=== PATIENT | female | born 1995 | race Caucasian/White ===

== ENCOUNTER 2018-11-03 17:55 | Observation (INO) | payer OTHER, SELFPAY ==
[2018-11-03 18:30] LABS: Absolute Lymphocytes (CBC) 2.3 K/uL (0.7-4.9); Absolute Monocytes 0.7 K/uL (0.1-1.3); Absolute Neutrophil 13.1 K/uL (1.8-8.0); Basophils % 0.8 % (0-1.3); Eosinophils % 0.4 % (0-4.4); Hematocrit 40.4 % (36.0-45.0); Lymphocytes % 14.4 % (15.3-44.8); MPV 7.8 fL (7.6-11.3); RBC Red Blood Cell Count 5.09 M/uL (3.86-4.86)
[2018-11-03] MEDS ORDERED: NA CHLORIDE 0.9% 1,000 ML ONE ×2 (18:35→21:27)
[2018-11-03] MEDS ORDERED: KETOROLAC 30 MG/ML INJ ONE (18:35)
[2018-11-03 18:41] LABS: BUN Blood Urea Nitrogen 7 mg/dL (7-18); Bicarbonate 26 mmol/L (21-32); Glucose Level 127 mg/dL (74-106); Potassium 3.5 mmol/L (3.5-5.1); Sodium Level 139 mmol/L (136-145)
[2018-11-03 20:13] LABS: Urine Blood 2+ (NEG); Urine Glucose NEGATIVE (NEG); Urine Protein NEGATIVE (NEG); Urine Specific Gravity 1.015 (1.005-1.030)
--- NOTE | 2018-11-03 20:56 | RAD REPORT ---
EXAM DESCRIPTION: CT - Abdomen Pelvis W Contrast - 11/03/2018 8:33 pm CLINICAL HISTORY: Abdominal pain. COMPARISON: None. TECHNIQUE: Computed axial tomography of the abdomen and pelvis was obtained. 100 cc Isovue-300 is ad ministered intravenously. Oral contrast was given. All CT scans are performed using dose optimization technique as appropriate and may include automated exposure control or mA/KV adjustment according to patient size. FINDINGS: The liver, spleen, pancreas, adrenals and kidneys appear unremarkable. There is no evidence of diverticulitis The appendix is mildly enlarged. Small amount of contrast is present within the appendix. Minimal str anding is present within the adjacent fat. No abscess. No free air. IUD is in place. No adnexal mass IMPRESSION: Mild thickening of the appendix probably represents early appendicitis. This should be c orrelated clinically.
--- NOTE | 2018-11-03 21:09 | ER ---
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 Transition of care: patient was not received from another setting of care. Onset of symptoms was November 03, 2018. Risk Assessment: Do you want to hurt yourself or someone else? Patient reports no desire to harm self or others. Initial Sepsis Screen: Does the patient meet any 2 criteria? No. Patient's initial sepsis screen is negative. Does the patient have a suspected source of infection? Yes: Acute abdominal pain. Care prior to arrival: None. 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 - Social history:: Smoking status: Patient/guardian denies using tobacco. - Ebola Screening: : Patient negative for fever greater than or equal to 101.5 degrees Fahrenheit, and additional compatible Ebola Virus Disease symptoms Patient denies exposure to infectious person Patient denies travel to an Ebola-affected area in the 21 days before illness onset No symptoms or risks identified at this time. Screenin:27 Abuse screen: Denies threats or abuse. Denies injuries from another. Nutritional rv screening: No deficits noted. Tuberculosis screening: No symptoms or risk factors identified. Fall Risk None identified. Assessment: 18:26 General: Appears in no apparent distress. comfortable, Behavior is calm, cooperative. rv Pain: Complains of pain in rlq. Pain: Pain does not radiate. Pain currently is 2 out of 10 on a pain scale. at worst was 7 out of 10 on a pain scale. Quality of pain is described as dull. Neuro: Level of Consciousness is awake, alert, obeys commands, Oriented to person, place, time, situation. Cardiovascular: Patient's skin is warm and dry. Respiratory: Airway is patent. GI: Bowel sounds present X 4 quads. Abd is soft and non tender X 4 quads. Reports lower abdominal pain. : No signs and/or symptoms were reported regarding the genitourinary system. EENT: No signs and/or symptoms were reported regarding the EENT system. Derm: Skin is intact. Musculoskeletal: No signs and/or symptoms reported regarding the musculoskeletal system. 19:06 Reassessment: Patient appears in no apparent distress at this time. No changes from rv previously documented assessment. Patient and/or family updated on plan of care and expected duration. Pain level reassessed. Patient is alert, oriented x 3, equal unlabored respirations, skin warm/dry/pink. awaiting for CT scan to be done. Vital Signs: 18:08 BP 139 / 86; Pulse 109; Resp 16; Temp 98.3; Pulse Ox 100% on R/A; Pain 7/10; sg 19:00 BP 137 / 76; Pulse 101; Resp 16; Temp 98; Pulse Ox 97% ; rv 19:30 BP 129 / 80; Pulse 103; Resp 17; Pulse Ox 97% ; rv 20:30 BP 134 / 84; Pulse 97; Resp 16; Pulse Ox 98% ; rv 21:58 BP 132 / 85; Pulse 104; Resp 17; Temp 99.1; Pulse Ox 98% ; rv 22:30 BP 125 / 82; Pulse 106; Resp 16; Pulse Ox 96% ; rv 23:00 BP 120 / 90; Pulse 97; Resp 17; Temp 98.5; Pulse Ox 97% ; rv ED Course: 17:58 Patient arrived in ED. tw3 17:59 Georgiana Infante FNP-C [facility]. kb 17:59 Mark Anthony Ryan MD is Attending Physician. kb 18:06 Scotty Nunez RN is Primary Nurse. rv 18:06 Arm band placed on. sg 18:08 Triage completed. sg 18:20 Inserted saline lock: 20 gauge in right antecubital area, using aseptic technique. rv Blood collected. 18:27 Patient has correct armband on for positive identification. Placed in gown. Bed in low rv position. Call light in reach. Side rails up X 1. Adult w/ patient. Pulse ox on. NIBP on. 19:05 Basic Metabolic Panel Sent. rv 20:33 CT Abd/Pelvis - W/Contrast In Process Unspecified. EDMS 21:09 Azael Wolf MD is Hospitalizing Provider. kb 23:10 No provider procedures requiring assistance completed. Patient admitted, IV remains in rv place. Administered Medications: 18:25 Drug: NS 0.9% 1000 ml Route: IV; Rate: 1000 ml; Site: right antecubital; rv 21:21 Follow up: IV Status: Completed infusion; IV Intake: 1000ml rv 18:25 Drug: TORadol 30 mg Route: IVP; Site: right antecubital; rv 19:05 Follow up: Response: No adverse reaction; Pain is decreased rv 21:21 Drug: Mefoxin 2 grams Route: IVPB; Infused Over: 30 mins; Site: right antecubital; rv 21:56 Follow up: IV Status: Completed infusion; IV Intake: 100ml rv 21:21 Drug: NS 0.9% 1000 ml Route: IV; Rate: 125 ml/hr; Site: right antecubital; rv 23:05 Follow up: IV Status: Infusion continued upon admission rv 21:56 Drug: Flagyl 500 mg Volume: 100 ml; Route: IVPB; Rate: 200 ml/hr; Infused Over: 30 rv mins; Site: right antecubital; 23:05 Follow up: IV Status: Completed infusion rv 23:05 Follow up: IV Intake: 100ml rv 22:30 Drug: morphine 4 mg Route: IVP; Site: right antecubital; rv 23:12 Follow up: Response: Pain is decreased rv 22:30 Drug: Zofran 4 mg Route: IVP; Site: right antecubital; rv 23:12 Follow up: Response: No adverse reaction rv Intake: 21:21 IV: 1000ml; Total: 1000ml. rv 21:56 IV: 100ml; Total: 1100ml. rv 23:05 IV: 100ml; Total: 1200ml. rv Outcome: 21:09 Decision to Hospitalize by Provider. kb 23:12 Admitted to Tele accompanied by tech, via wheelchair, room 416, with chart, Report rv called to ROSELYN BURLESON 23:12 Condition: good 23:12 Instructed on the need for admit. 23:22 Patient left the ED. rv Signatures: Dispatcher [employer] Georgiana Armijo, THEA LYNCH-Dewayne Vang, RN RN sg Shon, Ana tw3 Scotty Nunez RN RN rv
--- NOTE | 2018-11-03 21:09 | EDPHYS ---
Physician Documentation [facility] Name: Zabrina Mckeon Age: 23 yrs Sex: Female : 1995 Arrival Date: 11/03/2018 Time: 17:58 Bed 27 Private MD: ED Physician Mark Anthony Ryan HPI: 11/03 18:59 This 23 yrs old Female presents to ER via Ambulatory with complaints of kb Abdominal Pain. 18:59 The patient presents with abdominal pain right lower quadrant. Onset: The kb symptoms/episode began/occurred this morning. The symptoms do not radiate. Associated signs and symptoms: Pertinent positives: nausea, Pertinent negatives: anorexia, blood in stools, chest pain, constipation, diarrhea, dysuria, fever, headache, hematuria, palpitations, shortness of breath, vaginal discharge, vomiting, vomiting blood. The symptoms are described as constant. Modifying factors: The symptoms are alleviated by nothing, the symptoms are aggravated by pressure. Severity of pain: At its worst the pain was moderate in the emergency department the pain is unchanged. The patient has not experienced similar symptoms in the past. The patient has not recently seen a physician. Pt reports RLQ pain that started this morning with nausea. Was able to sleep through the nausea, but pain persists. Has not checked her temp to know about fever. Denies vomiting and diarrhea. 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 - Social history:: Smoking status: Patient/guardian denies using tobacco. - Ebola Screening: : Patient negative for fever greater than or equal to 101.5 degrees Fahrenheit, and additional compatible Ebola Virus Disease symptoms Patient denies exposure to infectious person Patient denies travel to an Ebola-affected area in the 21 days before illness onset No symptoms or risks identified at this time. ROS: 18:59 Constitutional: Negative for fever, chills, and weight loss, Cardiovascular: Negative kb for chest pain, palpitations, and edema, Respiratory: Negative for shortness of breath, cough, wheezing, and pleuritic chest pain, Back: Negative for injury and pain, : Negative for injury, bleeding, discharge, and swelling, MS/Extremity: Negative for injury and deformity, Skin: Negative for injury, rash, and discoloration, Neuro: Negative for headache, weakness, numbness, tingling, and seizure. 18:59 Abdomen/GI: Positive for abdominal pain, nausea, Negative for vomiting, diarrhea, constipation, abdominal cramps, abdominal distension, anorexia. Exam: 18:59 Constitutional: This is a well developed, well nourished patient who is awake, alert, kb and in no acute distress. Head/Face: Normocephalic, atraumatic. ENT: Nares patent. No nasal discharge, no septal abnormalities noted. Tympanic membranes are normal and external auditory canals are clear. Oropharynx with no redness, swelling, or masses, exudates, or evidence of obstruction, uvula midline. Mucous membranes moist. Neck: Trachea midline, no thyromegaly or masses palpated, and no cervical lymphadenopathy. Supple, full range of motion without nuchal rigidity, or vertebral point tenderness. No Meningismus. Chest/axilla: Normal chest wall appearance and motion. Nontender with no deformity. No lesions are appreciated. Cardiovascular: Regular rate and rhythm with a normal S1 and S2. No gallops, murmurs, or rubs. Normal PMI, no JVD. No pulse deficits. Respiratory: Lungs have equal breath sounds bilaterally, clear to auscultation and percussion. No rales, rhonchi or wheezes noted. No increased work of breathing, no retractions or nasal flaring. Back: No spinal tenderness. No costovertebral tenderness. Full range of motion. Skin: Warm, dry with normal turgor. Normal color with no rashes, no lesions, and no evidence of cellulitis. MS/ Extremity: Pulses equal, no cyanosis. Neurovascular intact. Full, normal range of motion. Neuro: Awake and alert, GCS 15, oriented to person, place, time, and situation. Cranial nerves II-XII grossly intact. Motor strength 5/5 in all extremities. Sensory grossly intact. Cerebellar exam normal. Normal gait. 18:59 Abdomen/GI: Inspection: abdomen appears normal, Bowel sounds: normal, in all quadrants, Palpation: soft, in all quadrants, moderate abdominal tenderness, in the right lower quadrant, Indicators: McBurney's point is tender. Vital Signs: 18:08 BP 139 / 86; Pulse 109; Resp 16; Temp 98.3; Pulse Ox 100% on R/A; Pain 7/10; sg 19:00 BP 137 / 76; Pulse 101; Resp 16; Temp 98; Pulse Ox 97% ; rv 19:30 BP 129 / 80; Pulse 103; Resp 17; Pulse Ox 97% ; rv 20:30 BP 134 / 84; Pulse 97; Resp 16; Pulse Ox 98% ; rv 21:58 BP 132 / 85; Pulse 104; Resp 17; Temp 99.1; Pulse Ox 98% ; rv 22:30 BP 125 / 82; Pulse 106; Resp 16; Pulse Ox 96% ; rv 23:00 BP 120 / 90; Pulse 97; Resp 17; Temp 98.5; Pulse Ox 97% ; rv MDM: 18:01 Patient medically screened. kb 18:59 Data reviewed: vital signs, nurses notes. Data interpreted: Pulse oximetry: on room air kb is 100 %. Interpretation: normal. 21:08 Counseling: I had a detailed discussion with the patient and/or guardian regarding: the kb historical points, exam findings, and any diagnostic results supporting the discharge/admit diagnosis, lab results, radiology results, the need for further work-up and treatment in the hospital. Physician consultation: Azael Wolf MD was contacted at 21:08, regarding admission, to the medical/surgical unit. patient's condition, and will see patient in inpatient room, wants to do appendectomy at 0800 tomorrow. 11/03 18:07 Order name: Basic Metabolic Panel kb 11/03 18:07 Order name: CBC with Diff; Complete Time: 18:32 kb 11/03 18:07 Order name: CT Abd/Pelvis - W/Contrast; Complete Time: 21:02 kb 11/03 18:08 Order name: Basic Metabolic Panel; Complete Time: 18:43 EDMS 11/03 19:02 Order name: Urine Dipstick--Ancillary (enter results); Complete Time: 20:16 sg 11/03 19:02 Order name: Urine --Ancillary (enter results); Complete Time: 20:16 sg 11/03 18:07 Order name: IV Saline Lock; Complete Time: 18:25 kb 11/03 18:07 Order name: Labs collected and sent; Complete Time: 18:25 kb 11/03 18:07 Order name: Urine Dipstick-Ancillary (obtain specimen); Complete Time: 19:07 kb 11/03 18:07 Order name: Urine Test (obtain specimen); Complete Time: 19:07 kb Administered Medications: 18:25 Drug: NS 0.9% 1000 ml Route: IV; Rate: 1000 ml; Site: right antecubital; rv 21:21 Follow up: IV Status: Completed infusion; IV Intake: 1000ml rv 18:25 Drug: TORadol 30 mg Route: IVP; Site: right antecubital; rv 19:05 Follow up: Response: No adverse reaction; Pain is decreased rv 21:21 Drug: Mefoxin 2 grams Route: IVPB; Infused Over: 30 mins; Site: right antecubital; rv 21:56 Follow up: IV Status: Completed infusion; IV Intake: 100ml rv 21:21 Drug: NS 0.9% 1000 ml Route: IV; Rate: 125 ml/hr; Site: right antecubital; rv 23:05 Follow up: IV Status: Infusion continued upon admission rv 21:56 Drug: Flagyl 500 mg Volume: 100 ml; Route: IVPB; Rate: 200 ml/hr; Infused Over: 30 rv mins; Site: right antecubital; 23:05 Follow up: IV Status: Completed infusion rv 23:05 Follow up: IV Intake: 100ml rv 22:30 Drug: morphine 4 mg Route: IVP; Site: right antecubital; rv 23:12 Follow up: Response: Pain is decreased rv 22:30 Drug: Zofran 4 mg Route: IVP; Site: right antecubital; rv 23:12 Follow up: Response: No adverse reaction rv Disposition: 11/03/18 21:09 Hospitalization ordered by Azael Wolf for Observation. Preliminary diagnosis is Acute appendicitis. - Bed requested for Telemetry/MedSurg (observation). - Status is Observation. rv - Condition is Stable. - Problem is new. - Symptoms are unchanged. UTI on Admission? No Addendum: 11/08/2018 20:27 Co-signature as Attending Physician, Mark Anthony Ryan MD. g s Signatures: Dispatcher [employer] Georgiana Armijo, CRSI-C CRIS-Dewayne Vang RN RN sg Kitty Miranda, BENJY RN cg Mark Anthony Ryan MD MD Scotty Nunez, RN RN rv Corrections: (The following items were deleted from the chart) 11/03 23:00 21:09 Hospitalization Ordered by Azael Wolf MD for Observation. Preliminary diagnosis cg is Acute appendicitis. Bed requested for Telemetry/MedSurg (observation). Status is Observation. Condition is Stable. Problem is new. Symptoms are unchanged. UTI on Admission? No. kb 23:22 23:00 11/03/2018 21:09 Hospitalization Ordered by Azael Wolf MD for Observation. rv Preliminary diagnosis is Acute appendicitis. Bed requested for Telemetry/MedSurg (observation). Status is Observation. Condition is Stable. Problem is new. Symptoms are unchanged. UTI on Admission? No. cg
[2018-11-03] MEDS ORDERED: CEFOXITIN SODIUM 1 GM/VIAL ONE (21:26)
[2018-11-03] MEDS ORDERED: METRONIDAZOLE 500mg IVPB 500 MG/100 ML BAG IV ONE (21:26)
[2018-11-03] MEDS ORDERED: NA CHLORIDE 0.9% 100 ML IV ONE (21:26)
[2018-11-03] MEDS ORDERED: MORPHINE 4 MG/ML SYR ONE (22:17)
[2018-11-03] MEDS ORDERED: ONDANSETRON 4 MG/2 ML VIAL ONE (22:18)
[2018-11-04 00:10] VITALS: BMI 39.7
[2018-11-04] MEDS ORDERED: MORPHINE 4 MG/ML SYR IV PRN (00:11)
[2018-11-04] MEDS ORDERED: ACETAMINOPHEN 500 MG TAB PO PRN (00:11)
[2018-11-04] MEDS ORDERED: ONDANSETRON 4 MG/2 ML VIAL IV PRN ×2 (00:11→08:56)
[2018-11-04] MEDS: NA CHLORIDE 0.9% 1,000 ML IV SCH ×3 (01:38→16:11)
[2018-11-04] MEDS ORDERED: METRONIDAZOLE 500mg IVPB 500 MG/100 ML BAG IV ONE (01:48)
[2018-11-04] MEDS ORDERED: CEFOXITIN SODIUM 1 GM/VIAL ONE (02:09)
[2018-11-04] MEDS ORDERED: CEFOXITIN SODIUM 1 GM/VIAL IVPB SCH (03:00)
[2018-11-04] MEDS ORDERED: NA CHLORIDE 0.9% 50 ML ONE (03:08)
[2018-11-04] MEDS: METRONIDAZOLE 250mg IVPB 250 MG/50 ML BAG IV SCH ×3 (05:00→20:18)
[2018-11-04 06:35] LABS: Absolute Lymphocytes (CBC) 3.2 K/uL (0.7-4.9); Absolute Monocytes 0.5 K/uL (0.1-1.3); Absolute Neutrophil 6.3 K/uL (1.8-8.0); Basophils % 0.6 % (0-1.3); Eosinophils % 1.3 % (0-4.4); Hematocrit 35.5 % (36.0-45.0); Lymphocytes % 31.3 % (15.3-44.8); RBC Red Blood Cell Count 4.41 M/uL (3.86-4.86)
[2018-11-04 06:49] LABS: BUN Blood Urea Nitrogen 6 mg/dL (7-18); Bicarbonate 24 mmol/L (21-32); Glucose Level 80 mg/dL (74-106); Potassium 3.6 mmol/L (3.5-5.1); Sodium Level 142 mmol/L (136-145)
[2018-11-04] MEDS ORDERED: ROCURONIUM 50 MG/5 ML VIAL IV ONE (08:01)
[2018-11-04] MEDS ORDERED: PROPOFOL 200 MG/20 ML VIAL IV ONE (08:01)
[2018-11-04] MEDS ORDERED: FENTANYL CITR 100 MCG/2 ML ONE (08:01)
[2018-11-04] MEDS ORDERED: LIDOCAINE 2% MPF 5 ML VIAL ONE (08:02)
[2018-11-04] MEDS ORDERED: Ringers Lactate 0 ML IV ONE (08:04)
[2018-11-04] MEDS: CEFOXITIN/SWI 1gm 1 GM/10 ML SYR IVP SCH ×3 (08:10→17:09)
[2018-11-04] MEDS ORDERED: DEXAMETHASONE 10 MG/ML VIAL ONE (08:24)
[2018-11-04] MEDS ORDERED: KETOROLAC 30 MG/ML INJ ONE (08:24)
[2018-11-04] MEDS ORDERED: Ringers Lactate 1,000 ML IV ONE (08:24)
[2018-11-04] MEDS ORDERED: ONDANSETRON 4 MG/2 ML VIAL ONE ×2 (08:24)
[2018-11-04] MEDS ORDERED: EPHEDRINE SULF 50 MG/ML VIAL ONE (08:29)
[2018-11-04] MEDS ORDERED: NEOSTIGMINE 1 MG/ML -10 ML VIAL ONE (08:43)
[2018-11-04] MEDS ORDERED: GLYCOPYRROLATE 0.2 MG/ML SYR ONE (08:43)
--- NOTE | 2018-11-04 08:47 | P.OP ---
Preoperative diagnosis: Acute Appendicitis Postoperative diagnosis: same Primary procedure: Lap Appy Anesthesia: Gen Estimated blood loss: min Specimen: Appy Findings: as above Complications: None Transferred to: Recovery Room Condition: Good
[2018-11-04] MEDS ORDERED: HYDROMORPHONE HCL 1 MG/ML INJ IV PRN (08:56)
[2018-11-04] MEDS ORDERED: HYDROMORPHONE HCL 1 MG/ML INJ ONE (09:26)
--- NOTE | 2018-11-04 20:12 | OP ---
Date of Procedure: 11/04/2018 Surgeon: Azael Wolf MD Preoperative Diagnosis: Acute appendicitis. Postoperative Diagnosis: Acute appendicitis. Procedure: Laparoscopic appendectomy. Estimated Blood Loss: Minimal. Specimen: Appendix. Findings: As above. Anesthesia: General. Complications: None. Disposition: The patient tolerated the procedure in stable condition, taken to Recovery in good gene ral condition. Procedure In Detail: The patient was brought to the OR, placed in supine position. General anesthes ia begun. The patient was prepped and draped in usual sterile fashion. Marcaine 0.5% was infiltrate d locally. A 15-blade was used to make a 1 cm supraumbilical midline incision. Subcutaneous tissue divided. Fascia and plane divided with #1 Vicryl. Stay suture was placed. Peritoneal cavity was en tered with sharp and blunt dissection. A 12 mm trocar was placed into the peritoneal cavity under di rect vision. Pneumoperitoneum was established. Then, two 5 mm trocars placed, 1 in the suprapubic r egion, 1 in the left lower quadrant. Laparoscopy revealed normal gallbladder, normal liver, normal s tomach, normal peritoneal surface. There were some adhesions in the right lower quadrant. Colon, sm all bowel, uterus, ovaries were within normal limit except I believe the left ovary may have had some cyst in it; it was a little larger than the right ovary. The tubes were fine. There was no other e vidence of disease. The appendix was identified in the right lower quadrant. The area was injected, indurated and there was early separation consistent with acute appendicitis. The base of the append ix, mesoappendix identified and an Endo-SOHAIL stapling device used to divide the mesoappendix as well a s the base of the appendix and the appendix was retrieved through the umbilicus via an EndoCatch bag. There was some oozing noted from the appendiceal artery mesenteric region and this was controlled e asily with vascular clips. Then, the right lower quadrant irrigated and no evidence of bleeding or b owel injury appreciated. No other evidence of disease identified and then all trocars were removed u nder direct vision. Stay sutures tied to each other, reapproximated the fascial defect. Subcutaneou s wounds irrigated. Bleeding controlled with cautery. 3-0 chromic used to reapproximate subcutaneou s tissue and natasha used to close skin. Sterile dressing was applied. The patient was awakened and taken to Recovery in good general condition. /MODL Voice ID: [id number] Report ID: [id number]
[2018-11-04] MEDS: HYDROCODONE/APAP 7.5/325 MG TAB PO PRN (20:16)
[2018-11-05] MEDS: CEFOXITIN/SWI 1gm 1 GM/10 ML SYR IVP SCH ×2 (00:07→06:08)
[2018-11-05] MEDS: NA CHLORIDE 0.9% 1,000 ML IV SCH ×2 (00:07→04:25)
[2018-11-05] MEDS: METRONIDAZOLE 250mg IVPB 250 MG/50 ML BAG IV SCH ×2 (04:25→13:59)
[2018-11-05 06:10] LABS: Absolute Lymphocytes (CBC) 2.7 K/uL (0.7-4.9); Absolute Monocytes 0.6 K/uL (0.1-1.3); Absolute Neutrophil 7.5 K/uL (1.8-8.0); Basophils % 0.3 % (0-1.3); Eosinophils % 0.1 % (0-4.4); Hematocrit 33.7 % (36.0-45.0); Lymphocytes % 24.7 % (15.3-44.8); MPV 7.9 fL (7.6-11.3); Monocytes % 5.4 % (3.3-12.3)
--- NOTE | 2018-11-05 08:58 | PREOPHP ---
Date of Admission: 11/03/2018 History Of Present Illness: The patient is a 23-year-old female, who comes in with right lower quadrant abdominal pain associated with nausea, no vomiting, and does have anorexia, had one ep isode of diarrhea dizziness. No chest pain. No fever or chills. Review of Systems: Otherwise, unremarkable. Past Medical History: . Past Surgical History: [place] teeth . Allergies: NO ALLERGIES. Family History: Significant for diabetes and high blood pressure. Physical Examination: Vital Signs: Stable. She is currently afebrile. General: She is awake, alert, oriented x3. Head and Neck: Cranial nerves 2 through 12 are grossly within normal limits. No neck masses. No JV D. Throat clear. Neck supple. Chest: Clear. Heart: S1, S2. Abdomen: Soft, nondistended. Positive bowel sounds. Positive right upper quadrant tenderness with rebound. No rigidity or guarding. Extremities: Adequately perfused. Nontender. Neuro: Nonfocal. Diagnostic Data: White count . Assessment: Acute appendicitis. Plan: Admit n.p.o., IV fluid, IV antibiotic, to the OR for laparoscopic appendectomy, possible open. The patient understand the risks, benefits, and alternatives and agrees to procedure. MING/EDUARDO Voice ID: [id number]
[2018-11-05] MEDS: HYDROCODONE/APAP 7.5/325 MG TAB PO PRN ×2 (10:00→15:55)
[2018-11-05 16:35] VITALS: O2SAT 99
[2018-11-05 17:23] VITALS: BP 119/84; TEMP 97.3
--- NOTE | 2018-11-06 04:50 | DS ---
Date of Discharge: 11/05/2018 Admitting Diagnosis: Acute appendicitis. Discharge Diagnosis: Acute appendicitis. Procedure Performed: Laparoscopic appendectomy. Hospital Course: The patient is a 23-year-old female who underwent the aforementioned procedure. Po stoperatively she is tolerating diet, ambulating, pain controlled with p.o. pain medication and afebr ile. Therefore, the patient will be discharged to home. Disposition: Home. Condition: Stable. Discharge Instructions: Resume home medications and diet. Activity as tolerated. No heavy lifting. Remove outer dressing in a.m. Shower. Keep wound clean and dry. Follow up in my office , call for appointment. Tylenol No. 3 one tablet p.o. q.4 p.r.n. pain. Augmentin 500 mg p.o. 8 hours . /MODL Voice ID: [id number] Report ID: [id number]
== END 2018-11-05 17:32 | disposition home or self-care (01) ==
LOC: ER 17:55 → ERHOLD 21:13 → 4TH 23:13
PROVIDERS: ADMIT Surgery; ATTEND Surgery
PROC: 0DTJ4ZZ Resection of Appendix, Percutaneous Endoscopic Approach (ICD-10-PCS; principal; 2018-11-04 08:00)
DX: K35.80 Unspecified acute appendicitis (principal); E28.2 Polycystic ovarian syndrome
CPT/HCPCS: 36415; 74177; 80048; 81003; 81025; 85025; 88304; 96361; 96365; 96367; 96375; 99285; G0378; J0694; J1100; J1170; J2405; J2704; J2710; J3010; J7030; Q9967